=== PATIENT | male | born 1975 | race African-American/Black ===

== ENCOUNTER 2018-07-30 21:58 | Emergency (ER) | payer MEDICARE, MEDICAID ==
[~2018-07-30] VITALS: Ht 175.3 cm; Wt 113.4 kg
[~2018-07-30 21:58] MED LIST: ATIVAN0.5 MG ORAL; CYMBALTA30 MG ORAL; HALOPERIDOL0.5 MG ORAL; IBUPROFEN600 MG ORAL; IBUPROFEN800 MG ORAL; METFORMIN HCL500 M1 ORAL; NKM; QUETIAPINE FUMA25 MG ORAL; SEROQUEL200 MG ORAL
[2018-07-30] MEDS ORDERED: ABILIFY2 MG ORAL (22:04)
[2018-07-30] MEDS ORDERED: DILANTIN100 MG ORAL (22:04)
[2018-07-30] MEDS ORDERED: DEPAKOTE250 MG PO (22:04)
[2018-07-30 22:06] VITALS: BP 162/101
[2018-07-30] MEDS ORDERED: Tylenol #3 tab (300mg/30mg) ORAL ONE (22:30)
[2018-07-30] MEDS ORDERED: TYLENOL EXTRA500 MG ORAL (22:40)
--- NOTE | 2018-07-30 22:56 | Emergency Room Report ---
History of Present Illness General Chief Complaint: Lower Back Pain or Injury Source: EMS Present Illness HPI 43-year-old male presents ED for evaluation. Patient brought in by EMS. Complaining of back pain or states he's had this pain for many years now. States he normally takes Dilaudid. Pain is throbbing, 8 out of 10, nonradiating. States he has history of schizophrenia. Denies any suicidal or homicidal ideation. Denies hearing voices. Denies any bowel or bladder incontinence. Denies any leg or motor weakness. Denies any recent injury. No other aggravating relieving factors. Denies any other associated symptoms Allergies: Coded Allergies: NO KNOWN ALLERGIES (Unverified Allergy, Unknown, 11/26/15) Patient History Past Medical History: HTN, asthma, seizures, psych hx Past Surgical History: none Pertinent Family History: none Social History: Denies: smoking, alcohol use, drug use Immunizations: UTD Reviewed Nursing Documentation: PMH: Agreed; PSxH: Agreed Nursing Documentation-PMH Hx Hypertension: Yes Hx Asthma: Yes Hx Diabetes: Yes History Of Psychiatric Problem: Yes - SCHIZO,BIPOLAR Hx Seizures: Yes Review of Systems All Other Systems: negative except mentioned in HPI Physical Exam Vital Signs Date Time Temp Pulse Resp B/P (MAP) Pulse Ox O2 Delivery O2 Flow Rate FiO2 07/30/ 22:00 97.8 99 17 162/101 98 Room Air 97.9 Sp02 EP Interpretation: reviewed, normal General Appearance: no apparent distress, alert, GCS 15, non-toxic, obese Head: normocephalic, atraumatic Eyes: bilateral eye normal inspection, bilateral eye PERRL ENT: hearing grossly normal, normal pharynx, no angioedema, normal voice Neck: full range of motion, supple/symm/no masses Respiratory: chest non-tender, lungs clear, normal breath sounds, speaking full sentences Cardiovascular #1: regular rate, rhythm, no edema Cardiovascular #2: 2+ carotid (R), 2+ carotid (L), 2+ radial (R), 2+ radial (L) , 2+ dorsalis pedis (R), 2+ dorsalis pedis (L) Gastrointestinal: normal bowel sounds, non tender, soft, non-distended, no guarding, no rebound Rectal: deferred Genitourinary: normal inspection, no CVA tenderness Musculoskeletal: back normal, gait/station normal, normal range of motion, non- tender Neurologic: alert, oriented x3, responsive, motor strength/tone normal, sensory intact, speech normal Psychiatric: judgement/insight normal, memory normal, mood/affect normal, no suicidal/homicidal ideation, anxious Reflexes: 3+ bicep (R), 3+ bicep (L), 3+ tricep (R), 3+ tricep (L), 3+ knee (R) , 3+ knee (L) Skin: normal color, no rash, warm/dry, well hydrated Lymphatic: no adenopathy Medical Decision Making Diagnostic Impression: Primary Impression: Chronic back pain Qualified Codes: M54.5 - Low back pain; G89.29 - Other chronic pain Additional Impression: Schizophrenia Qualified Codes: F20.9 - Schizophrenia, unspecified ER Course Hospital Course 43-year-old male presents ED complaining of lower back pain. No evidence of trauma Differential diagnoses include: pyelonephritis, kidney stone, muscle strain, Lspine fracture Clinical course Patient placed on stretcher. After initial history, physical exam reveals an obese male in no acute distress. There is no focal neurological deficits. 5 out of 5 motor strength in both legs. Patient is requesting [place]. I agreed to provide him with Tylenol 3. Patient is asking to be discharged. Denies any SI or HI at this time. Patient given wheelchair and resources for fdc Diagnosis - chronic back pain, schizophrenia Stable and discharged to home with prescription for Tylenol. Followup with PMD. Return to ED if symptoms recur or worsen Last Vital Signs Date Time Temp Pulse Resp B/P (MAP) Pulse Ox O2 Delivery O2 Flow Rate FiO2 07/30/18 22:31 97.8 07/30/18 22:06 17 162/101 98 Room Air 07/30/18 22:00 99 Status: improved Disposition: HOME, SELF-CARE Condition: Stable Scripts Acetaminophen* (TYLENOL EXTRA STRENGTH*) 500 Mg Tablet 500 MG ORAL Q8H PRN for Prn Headache/Temp > 101, #30 TAB 0 Refills Prov: Fer Tang MD 07/30/18 Referrals: NOT CHOSEN [facility]/,REFERRING (PCP) Patient Instructions: Low Back Sprain With Rehab[facility] Fer Tang MD Jul 30, 2018 22:56
[2018-07-30 22:58] VITALS: BP 150/98
== END 2018-07-30 22:58 | disposition home or self-care (01) ==
LOC: EDUNIT# 21:58 → EDBD 21:58 → EMR 22:25
DX: G89.29 Other chronic pain (principal); M54.5 Low back pain; F20.9 Schizophrenia, unspecified; I10 Essential (primary) hypertension; E11.9 Type 2 diabetes mellitus without complications; J45.909 Unspecified asthma, uncomplicated; R56.9 Unspecified convulsions; F31.9 Bipolar disorder, unspecified; Z79.891 Long term (current) use of opiate analgesic
CPT/HCPCS: 99283

== ENCOUNTER 2018-08-14 04:48 | Emergency (ER) | payer MEDICARE, MEDICAID ==
[~2018-08-14] VITALS: Ht 177.8 cm; Wt 156.5 kg
[~2018-08-14 04:48] MED LIST changes: +ABILIFY2 MG ORAL; +DEPAKOTE250 MG PO; +DILANTIN100 MG ORAL; +TYLENOL EXTRA500 MG ORAL
[2018-08-14 05:15] VITALS: BP 150/84
[2018-08-14] MEDS ORDERED: QUETIAPINE FUM200 MG ORAL (05:56)
--- NOTE | 2018-08-14 05:56 | Emergency Room Report ---
History of Present Illness General Chief Complaint: Behavioral Complaint Source: Patient, Medical Record Present Illness HPI This a 43-year-old male who is homeless. He has a history of schizophrenia been off of his Seroquel. Also history of methamphetamine and heroin abuse. He called 911 from a gas station claiming that he is suicidal. No particular plan. No fever chills but no nausea no vomiting. Here he said is no longer suicidal. Said that his want a place to sleep. Also want some food. Denies any other complaint. Recent psychiatric admission 2 months ago. He said he was trying to find drug to use yesterday but last use was 2 weeks ago. Also out of his medicine for the last 2 weeks. Allergies: Coded Allergies: NO KNOWN ALLERGIES (Unverified Allergy, Unknown, 11/26/15) Patient History Past Medical History: see triage record, old chart reviewed, schizophrenia Past Surgical History: none Family History: none Social History: tobacco use, drug use, other Immunizations: other Reviewed Nursing Documentation: PMH: Agreed; PSxH: Agreed Nursing Documentation-PMH Past Medical History: No History, Except For Hx Hypertension: Yes Hx Asthma: Yes Hx Diabetes: Yes History Of Psychiatric Problem: Yes Hx Seizures: Yes Review of Systems ENT: Denies: sore throat Cardiovascular: Denies: chest pain, palpitations Gastrointestinal/Abdominal: Denies: nausea, vomiting, diarrhea Musculoskeletal: Denies: back problems Skin: Denies: rash Psychiatric: Reports: prior history Neurological: Denies: PISANO, seizures All Other Systems: negative except mentioned in HPI Physical Exam Vital Signs Date Time Temp Pulse Resp B/P (MAP) Pulse Ox O2 Delivery O2 Flow Rate FiO2 08/14/18 04:43 98.4 90 20 180/111 98 Room Air 98.4 vitals with high blood pressure Sp02 EP Interpretation: reviewed, normal General Appearance: alert/responsive, no apparent distress, non-toxic Head: normocephalic, atraumatic Eyes: PERRL, EOMI ENT: oropharynx normal Neck: supple/symm/no masses Respiratory: effort normal, no rhonchi, no wheezing Cardiovascular: no murmur, gallop, rub Gastrointestinal: non-tender, no mass, non-distended, no rebound/guarding, normal bowel sounds Musculoskeletal: gait & station normal Neurologic: oriented x3, sensory intact, motor strength/tone normal Skin: no rash, normal palpation Medical Decision Making Diagnostic Impression: Primary Impression: Behavioral disorder Additional Impressions: Hypertension Qualified Codes: I10 - Essential (primary) hypertension Drug abuse ER Course Patient here with initially but suicidal thoughts but none now. I suspect that he was malingering to get a place to stay. No evidence of suicidal thoughts or homicidal thought here. No hallucination or delusion. No criteria for 5150. His elevated high blood pressure may be secondary to drug abuse. No evidence of endorgan damage. This patient is a chronic risk of self injury due to poor impulse control, limited coping skills, and judgment intermittently impaired by intoxication. I believe that the available clinical evidence to suggest that these characteristics derived primarily from personality disorder and are likely very stable over time. Hospitalization would likely attenuate risk of self-harm only during mcfp period, without lasting risk reduction. Serious self-harm , while possible, would likely be inadvertent, and because of impulsivity, and foreseeable. For these reasons, I do not believe hospitalization would provide meaningful reduction in risk of self-harm. Last Vital Signs Date Time Temp Pulse Resp B/P (MAP) Pulse Ox O2 Delivery O2 Flow Rate FiO2 08/14/18 05:15 98.4 83 15 150/84 100 Room Air 98.4 Status: improved Disposition: HOME, SELF-CARE Condition: Stable Scripts Quetiapine Fumarate* (SEROQUEL*) 200 Mg Tablet 200 MG ORAL DAILY, #30 TAB Prov: Bryan Merchant MD 08/14/18 Referrals: NOT CHOSEN [facility]/,REFERRING (PCP) Patient Instructions: Self-Destructive Behavior Additional Instructions: Using drugs. Follow-up with your mental health doctor in 7 days. Return if worse. Bryan Merchant MD Aug 14, 2018 05:56
[2018-08-14 06:00] VITALS: BP 150/84
== END 2018-08-14 06:00 | disposition home or self-care (01) ==
LOC: EDBD 04:48 → EMR 05:18
DX: F91.8 Other conduct disorders (principal); F19.10 Other psychoactive substance abuse, uncomplicated; I10 Essential (primary) hypertension; E11.9 Type 2 diabetes mellitus without complications; Z72.0 Tobacco use
CPT/HCPCS: 80307; 99283

== ENCOUNTER 2018-08-20 20:54 | Emergency (ER) | payer MEDICARE, MEDICAID ==
[~2018-08-20] VITALS: Ht 182.9 cm; Wt 136.1 kg
[~2018-08-20 20:54] MED LIST changes: +QUETIAPINE FUM200 MG ORAL
[2018-08-20 21:17] VITALS: BP 177/104
[2018-08-20 22:05] VITALS: BP 172/99
--- NOTE | 2018-08-22 06:58 | Emergency Room Report ---
History of Present Illness General Chief Complaint: Behavioral Complaint Source: Patient, EMS Present Illness HPI 43-year-old male presents ED for evaluation. Brought in by EMS from local store. Complaining of back pain. History of chronic back pain. Recent fall or injury. Pain is dull, 8 out of 10, nonradiating. History of schizophrenia. Denies suicidal homicidal ideation. Denies hearing voices. Denies drug use. Denies bowel or bladder incontinence. Denies any leg or motor weakness. No other aggravating or relieving factors. Denies any other associated symptoms Allergies: Coded Allergies: NO KNOWN ALLERGIES (Unverified Allergy, Unknown, 11/26/15) Patient History Past Medical History: DM, HTN, asthma, seizures, psych hx Past Surgical History: none Pertinent Family History: none Social History: Denies: smoking, alcohol use, drug use Immunizations: UTD Reviewed Nursing Documentation: PMH: Agreed; PSxH: Agreed Nursing Documentation-PMH Past Medical History: No History, Except For Hx Cardiac Problems: Yes Hx Hypertension: Yes Hx Asthma: Yes Hx Diabetes: Yes Hx Seizures: Yes Review of Systems All Other Systems: negative except mentioned in HPI Physical Exam Vital Signs Date Time Temp Pulse Resp B/P (MAP) Pulse Ox O2 Delivery O2 Flow Rate FiO2 08/20/18 20:53 98.4 100 16 177/104 96 Room Air 98.4 Sp02 EP Interpretation: reviewed, normal General Appearance: no apparent distress, alert, GCS 15, non-toxic, obese Head: normocephalic, atraumatic Eyes: bilateral eye normal inspection, bilateral eye PERRL ENT: hearing grossly normal, normal pharynx, no angioedema, normal voice Neck: full range of motion, supple/symm/no masses Respiratory: chest non-tender, lungs clear, normal breath sounds, speaking full sentences Cardiovascular #1: regular rate, rhythm, no edema Cardiovascular #2: 2+ carotid (R), 2+ carotid (L), 2+ radial (R), 2+ radial (L) , 2+ dorsalis pedis (R), 2+ dorsalis pedis (L) Gastrointestinal: normal bowel sounds, non tender, soft, non-distended, no guarding, no rebound Rectal: deferred Genitourinary: normal inspection, no CVA tenderness Musculoskeletal: back normal, gait/station normal, normal range of motion, tender - paraspinal lumbar tenderness Neurologic: alert, oriented x3, responsive, motor strength/tone normal, sensory intact, speech normal Psychiatric: judgement/insight normal, memory normal, no suicidal/homicidal ideation, no delusions, anxious Reflexes: 3+ bicep (R), 3+ bicep (L), 3+ tricep (R), 3+ tricep (L), 3+ knee (R) , 3+ knee (L) Skin: normal color, no rash, warm/dry, well hydrated Lymphatic: no adenopathy Medical Decision Making Diagnostic Impression: Primary Impression: Chronic back pain Qualified Codes: M54.5 - Low back pain; G89.29 - Other chronic pain Additional Impression: Schizophrenia Qualified Codes: F20.9 - Schizophrenia, unspecified ER Course Hospital Course 43-year-old male presents ED complaining of lower back pain. No evidence of trauma Differential diagnoses include: pyelonephritis, kidney stone, muscle strain, Lspine fracture Clinical course Patient placed on stretcher. After initial history and physical I ordered tylenol for pain. Patient has been here multiple times for similar complaint. No danger to self or others at this time. Requesting to be discharged after Tylenol has been given. Diagnosis -chronic back pain , schizophrenia Stable and discharged to home. Followup with PMD. Return to ED if symptoms recur or worsen Last Vital Signs Date Time Temp Pulse Resp B/P (MAP) Pulse Ox O2 Delivery O2 Flow Rate FiO2 08/20/18 22:05 98.6 16 172/99 96 Room Air 08/20/18 20:53 100 Status: improved Disposition: HOME, SELF-CARE Condition: Stable Referrals: NOT CHOSEN [facility]/,REFERRING (PCP) Patient Instructions: Chronic Pain Fer Tang MD Aug 22, 2018 06:58
== END 2018-08-20 22:05 | disposition home or self-care (01) ==
LOC: EDBD 20:54 → EMR 21:27
DX: G89.29 Other chronic pain (principal); M54.9 Dorsalgia, unspecified; F20.9 Schizophrenia, unspecified; I10 Essential (primary) hypertension; E11.9 Type 2 diabetes mellitus without complications; J45.909 Unspecified asthma, uncomplicated; Z91.81 History of falling
CPT/HCPCS: 99283

== ENCOUNTER 2019-08-19 10:08 | Inpatient (IN) | payer MEDICARE, MEDICAID ==
[~2019-08-19] VITALS: Ht 177.8 cm; Wt 136.1 kg
[2019-08-19] MEDS ORDERED: NKM (10:12)
--- NOTE | 2019-08-19 10:15 | NUR ---
ED Nurse Note: Pt is AAoX4, vss, no acute distress. pt has suicidal ideations. pt brought by [facility] [address] due to weakness. non-compliant meds for DM and HTN. BS 212
--- NOTE | 2019-08-19 10:17 | NUR ---
ED Nurse Note: Pt refused VRE/CRE swabs. Pt states that he is allergic to the swab. MRSA collected.
--- NOTE | 2019-08-19 10:17 | NUR ---
ED Nurse Note: Chest x-ray complete.
[2019-08-19 10:39] VITALS: BP 158/99
[2019-08-19] MEDS ORDERED: LORazepam 1mg tab ORAL ONE (11:00)
--- NOTE | 2019-08-19 11:00 | Emergency Room Report ---
History of Present Illness General Chief Complaint: Generalized Weakness Source: Patient, Medical Record, EMS Present Illness HPI 44-year-old male with history of hypertension, diabetes, methamphetamine abuse reports that he is methamphetamines last night and since then he feels generalized weakness, and wants medications to help him relax, he reports sometimes he has suicidal thoughts, but has no plan, and reports he just wants something to help him calm down. He specifically denies any active suicidality currently, just reports he needs meds to help him relax after having used methamphetamines. Reports generalized weakness but no focal weakness, denies fevers, falls, pain complaints, any other problems. Allergies: Coded Allergies: NO KNOWN ALLERGIES (Unverified Allergy, Unknown, 11/26/15) Patient History Past Medical History: see triage record Reviewed Nursing Documentation: PMH: Agreed; PSxH: Agreed Nursing Documentation-PMH Past Medical History: No History, Except For Hx Cardiac Problems: Yes Hx Hypertension: Yes Hx Asthma: Yes Hx Diabetes: Yes Hx Seizures: Yes Review of Systems All Other Systems: negative except mentioned in HPI Physical Exam Vital Signs Date Time Temp Pulse Resp B/P (MAP) Pulse Ox O2 Delivery O2 Flow Rate FiO2 08/19/19 10:09 99.0 90 14 180/110 (133) 96 Room Air 08/19/19 10:39 99 Sp02 EP Interpretation: reviewed, normal General Appearance: no apparent distress, alert, non-toxic Head: normocephalic Eyes: bilateral eye normal inspection, bilateral eye PERRL, bilateral eye EOMI ENT: normal ENT inspection, hearing grossly normal, normal pharynx, no angioedema, normal voice, moist mucus membranes Neck: normal inspection, full range of motion, supple, supple/symm/no masses Respiratory: chest non-tender, lungs clear, normal breath sounds, chest symmetrical, palpation of chest normal Cardiovascular #1: normal peripheral pulses, regular rate, rhythm Cardiovascular #2: 2+ radial (R), 2+ radial (L) Gastrointestinal: normal inspection, non tender, soft, no mass, no guarding, no rebound Rectal: deferred Genitourinary: normal inspection, no CVA tenderness Musculoskeletal: back normal, gait/station normal, normal range of motion, non- tender, no calf tenderness Neurologic: alert, responsive, annual campaign manager III-XII nml as tested, motor strength/tone normal, sensory intact, speech normal Psychiatric: judgement/insight normal, memory normal, no suicidal/homicidal ideation, anxious Lymphatic: no adenopathy Procedures Critical Care Time Critical Care Time 45 minutes of critical care time excluding all procedures, due to risk of cardiovascular emergency Medical Decision Making Diagnostic Impression: Primary Impression: Episode of generalized weakness Additional Impressions: Methamphetamine abuse Hypertension ER Course Patient With substance abuse, but hypertension has been refractory to oral meds here, also given Haldol due to his chronic schizophrenia, however patient's blood pressure kept climbing, he has a normal neurologic examination, and therefore will need admission for hypertensive urgency, likely drug-induced, as well as medication noncompliance induced, will admit to telemetry. EKG Diagnostic Results EKG Time: 10:23 EP Interpretation: no stemi Rate: normal Rhythm: NSR ST Segments: no acute changes ASA given to the pt in ED: No Rhythm Strip Diag. Results Rhythm Strip Time: 11:00 EP Interpretation: yes Rate: 92 Rhythm: NSR, no PVC's, no ectopy Last Vital Signs Date Time Temp Pulse Resp B/P (MAP) Pulse Ox O2 Delivery O2 Flow Rate FiO2 08/19/19 10:39 99.0 74 14 158/99 99 Room Air 08/19/19 10:39 99 Disposition: ADMITTED INPATIENT Condition: Stable Referrals: NOT CHOSEN [facility]/,REFERRING (PCP) DONNY WINSTON M.D Aug 19, 2019 11:00
--- NOTE | 2019-08-19 11:03 | NUR ---
ED Nurse Note: Blood sent to lab. Urine pending. Pt states he is allergic to Ativan.
--- NOTE | 2019-08-19 11:05 | NUR ---
ED Nurse Note: Pt refused Atavan. Pt stated that he wants to go to [facility] and speak with Ashley Davis for his living arrangment after his visit.
[2019-08-19 11:16] LABS: BASOPHILS % (AUTO) 0.9 % (0.0-2.0); HEMATOCRIT 40.5 % (42.0-52.0); HEMOGLOBIN 13.8 G/DL (14.2-18.0); LYMPHOCYTES % (AUTO) 31.4 % (20.0-45.0); MEAN CORPUSCULAR VOLUME 81 FL (80-99); MONOCYTES % (AUTO) 6.3 % (1.0-10.0); NEUTROPHILS % (AUTO) 59.3 % (45.0-75.0); PLATELET COUNT 251 K/UL (150-450); RED CELL DISTRIBUTION WIDTH 12.3 % (11.6-14.8); WHITE BLOOD COUNT 8.7 K/UL (4.8-10.8)
[2019-08-19 11:19] LABS: ANION GAP 11 mmol/L (5-15); BLOOD UREA NITROGEN 16 mg/dL (7-18); CALCIUM 8.9 MG/DL (8.5-10.1); CARBON DIOXIDE 27 MMOL/L (21-32); CHLORIDE 103 MMOL/L (98-107); CREATININE 0.9 MG/DL (0.55-1.30); POTASSIUM 3.4 MMOL/L (3.5-5.1); SODIUM 141 MMOL/L (136-145)
--- NOTE | 2019-08-19 11:23 | Diagnostic Imaging Report ---
Indication: Shortness of breath Technique: One view of the chest Comparison: none Findings: Lungs and pleural spaces are clear. Heart size is normal. Impression: No acute process
[2019-08-19 11:25] LABS: ALANINE AMINOTRANSFERASE 46 U/L (12-78); ALBUMIN 3.4 G/DL (3.4-5.0); ALKALINE PHOSPHATASE 96 U/L (46-116); ASPARTATE AMINO TRANSFERASE 33 U/L (15-37); BILIRUBIN,TOTAL 0.6 MG/DL (0.2-1.0)
[2019-08-19] MEDS ORDERED: Haloperidol 5mg/ml Inj IM ONE (11:30)
--- NOTE | 2019-08-19 13:26 | Diagnostic Imaging Report ---
Indication: Chest pain Technique: One view of the chest Comparison: 08/19/2019 Findings: Body habitus limits evaluation. Lungs and pleural spaces are clear. The heart is borderline enlarged. There is evidence of prior lumbar spine fusion surgery again demonstrated. Findings are unchanged Impression: Unchanged, over 3 hours, findings as above.
[2019-08-19 13:30] VITALS: BP 166/93
--- NOTE | 2019-08-19 13:30 | NUR ---
ED Nurse Note: Dr. Brito notified of blood pressure 166/93 with HR 89. Patient sleeping in bed. ERMD ordered to hold Labetalol at this time.
--- NOTE | 2019-08-19 13:35 | NUR ---
ED Nurse Note: Pt denies SI/HI at this time.verified with Dr Brito. Cooperative with care at this
[2019-08-19 13:48] VITALS: BP 149/96
[2019-08-19 14:16] LABS: APPEARANCE,URINE CLEAR; BILIRUBIN, URINE NEGATIVE (NEGATIVE); GLUCOSE, URINE (UA) 1+ (NEGATIVE); KETONES,URINE NEGATIVE (NEGATIVE); LEUKOCYTE ESTERASE ,URINE NEGATIVE (NEGATIVE); NITRITE,URINE NEGATIVE (NEGATIVE); PH,URINE 6.5 (4.5-8.0); PROTEIN,URINE NEGATIVE (NEGATIVE); UROBILINOGEN,URINE 4 MG/DL (0.0-1.0)
[2019-08-19 14:17] LABS: COLOR,URINE YELLOW
[2019-08-19] MEDS ORDERED: UNOBMED (14:24)
--- NOTE | 2019-08-19 14:24 | NUR ---
ED Nurse Note: Report given to Freda JACOBO pt will be going to [id number] via [facility]/DONNELL and tech on cm in stable condition. Per Dr nestor adamest want to give K replacement at this time.
--- NOTE | 2019-08-19 14:25 | NUR ---
NURSE NOTES: The patient's bed in the lowest position, call light in reach, and fall, aspiration and seizure precaution reinforced. IV site intact and patent. Will continue plan of care.
--- NOTE | 2019-08-19 14:25 | NUR ---
NURSE NOTES: Received report from DONNELL Jang @ER. The patient is homeless and minicog testing was completed at ER. The patient received blood pressure medication @ER and was told that systolic blood pressure was 150s with medications support. The patient's belongings checked and signed by the patient. Admitting EKG strip obtained. Per ER nurse, unable to do medication reconciliation since the patient cannot remember the name of the medication. Per DONNELL Jang @ ER, the patient refused the swab. Medical, surgical, allergy, and social history were asked by the primary nurse to the patient, but the patient did not answer the question. Upon asking, the patient denies of suicidal ideation, thoughts, or plan. The patient has IV on R hand 20G SL, which is intact and patent. Per patient, the patient does not have next of kin or family member to contact for the further information. The patient does not have POST, Advance directive, or POA. Skin is intact. The admitting vital signs were as follows: 150/97, pulse 87, temperature 97.7, and SpO2 99% in room air. Will call Dr. Tovar for admission order. Will continue plan of care.
--- NOTE | 2019-08-19 14:45 | NUR ---
NURSE NOTES: Potassium of 3.4. no KCL given at ER. Dr. Tovar and Dr. García was notified but no order yet. Will continue plan of care.
[2019-08-19 15:04] VITALS: BP 150/97
--- NOTE | 2019-08-19 15:40 | NUR ---
NURSE NOTES: Dr. Tovar and Dr. García ordered admission orders including DVT, consults, code status, diet order, lab for tomorrow am, and medication as the patient does not remember the name of the medication. Will continue plan of care as ordered.
--- NOTE | 2019-08-19 16:00 | NUR ---
NURSE NOTES: The patient has stable vital signs as follows: blood pressure of 115/75, pulse of 83, temperature of97.7, and SpO2 of 95% in room air.
--- NOTE | 2019-08-19 16:00 | NUR ---
NURSE NOTES: The patient is strongly resistant in medical care. The patient screamed to the nurse saying that the patient feels better and would like to sign out with AMA. The charge nurse and the nursing supervisor quality control was notified. Will contact Dr. García and Dr. Tovar.
[2019-08-19 16:30] VITALS: BP 115/75
[2019-08-19] MEDS ORDERED: Enoxaparin 40mg Inj SUBQ SCH (16:30)
[2019-08-19] MEDS ORDERED: NovoLOG Insulin Flexpen SUBQ SCH (17:00)
--- NOTE | 2019-08-19 18:10 | NUR ---
NURSE NOTES: The patient signed the form for leaving hospital against medical advice, homeless patient discharge planning checklist, and patient's belongings inventory forms. The patient screamed to the primary nurse and the charge nurse saying that leave him alone and would like to leave right now. Notified the patient's decision of AMA to Dr. Tovar and Dr. aGrcía. The patient was informed about the risks and consequences involved in leaving the hospital at this time, the benefits of continued treatment and hospitalization, and the alternatives times three, but the patient would like to sign AMA and leave hospital right now. The patient's belongings checked with the patient and signed before leaving the hospital. In terms of homeless patient discharge planning checklist, the patient refused to state where he will go after discharge and refused the placement option. The patient offered the transportation but refused by the patient. The patient's meal was provided in an appropriate manner. The patient was provided with weather appropriate clothing. The medication provided during hospitalization but was not able to be provided at the time of discharge since the patient signed for AMA and no discharge medication was available. The patient refused the swabs upon discharge. The vaccinations appropriate for his or her presenting medical condition was refused by the patient. The patient refused the follow up care. The patient refused follow up behavioral healthcare. The patient refused medical care. The patient refused the social service regarding insurance coverage. The patient is not on homeless patient log because the patient signed for AMA. In short, the patient refused all medical care, assessment, resource, and service and signed the AMA. The patient is on stable condition in terms of vital signs and physical symptoms. The patient left in a safe manner with the primary nurse and security's assistance. The primary nurse removed IV, telebox, and nameband. Notified the case to Dr. Tovar, Dr. García, the charge nurse, and the nursing stock control supervisor.
--- NOTE | 2019-08-19 18:30 | NUR ---
NURSE NOTES: DR STARK RETURNED CALL AND WAS NOTIFIED THAT PT LEFT AMA.
[2019-08-19] MEDS ORDERED: ABILIFY2 MG ORAL (21:14)
[2019-08-19] MEDS ORDERED: NORVASC2.5 MG ORAL (21:14)
[2019-08-19] MEDS ORDERED: ZYPREXA10 M1 INJ (21:14)
[2019-08-19] MEDS ORDERED: DEPAKOTE125 MG PO (21:14)
[2019-08-19] MEDS ORDERED: QUETIAPINE FUMA25 MG ORAL (21:14)
[2019-08-19] MEDS ORDERED: METFORMIN HCL5000 GM MC (21:14)
[2019-08-19] MEDS ORDERED: DILANTIN100 MG ORAL (21:14)
[2019-08-19] MEDS ORDERED: ABILIFY10 MG ORAL (23:00)
[2019-08-19] MEDS ORDERED: SEROQUEL200 MG ORAL (23:00)
--- NOTE | 2019-08-20 01:00 | Consultation ---
DATE OF CONSULTATION: 08/19/2019 CONSULTING PHYSICIAN: Tyler García M.D. REFERRING PHYSICIAN: Mic Tovar M.D. REASON FOR CONSULTATION: Hypertensive urgency. HISTORY OF PRESENT ILLNESS: The patient is a 44-year-old gentleman who presented to the emergency room for evaluation care of complaints of generalized weakness, feeling ill, no suicidal thoughts, and quite anxious and concerned. The patient has a history of methamphetamine abuse and reports using methamphetamines the evening prior and was very concerned because he was not feeling well. As such, presented to emergency room for further evaluation and care, noted to have elevated blood pressure. The patient was given Norvasc and Haldol in the emergency room. He is currently very somnolent, difficult to arouse, and is sleeping due to the Haldol. ALLERGIES: No known drug allergies. PAST MEDICAL HISTORY: 1. Hypertension. 2. Diabetes mellitus. 3. Methamphetamine abuse. 4. Schizophrenia SOCIAL HISTORY: Positive for illicit drug use, alcohol. Clear of tobacco use. PAST SURGICAL HISTORY: Unknown. FAMILY HISTORY: Positive for hypertension REVIEW OF SYSTEMS: Cannot be obtained as the patient is sedated, post Haldol. LABORATORY DATA: Labs dated 08/19/2019, white cell count 8.7, hemoglobin 13.8, and platelet count 251,000. Sodium 141, potassium 3.4, creatinine 0.9. PHYSICAL EXAMINATION: VITAL SIGNS: Blood pressure 146/96, respiratory rate 18, pulse 87, temperature 97.7, and 97% oxygen saturation on room air. GENERAL: The patient is very somnolent, difficult to arouse post Haldol. HEENT: Extraocular muscles intact. No lymphadenopathy noted. CARDIOVASCULAR: S1, S2. No rubs or gallops. PULMONARY: Clear to auscultation bilaterally. No rales, rhonchi, or wheezes. ABDOMEN: Soft, nontender. EXTREMITIES: No edema noted. ASSESSMENT AND PLAN: 1. Hypertensive urgency. At this time secondary to methamphetamine abuse. We will try not to decrease blood pressure more than 25% over the first 24 hours. Continue labetalol 100 mg q.12 h. His blood pressure is already down to approximately systolic blood pressure 150, also add p.r.n. IV hydralazine. Urine drug screen is still pending. 2. Schizophrenia. Status post Haldol. Defer management to primary care physician's group and Psychiatry. 3. Diabetes. We will initiate insulin sliding scale and Accu-Cheks. 4. DVT prophylaxis with Lovenox. Let me take this opportunity to thank Dr. Tovar. Tylercarol García MD DR: BRODY/BAN JOB#: [id number] CC:
--- NOTE | 2019-08-20 09:54 | History & Physical ---
History and Physical History & Physicial HISTORY OF PRESENT ILLNESS: The patient is a 44-year-old man who presented to the emergency room for evaluation care of complaints of generalized weakness, feeling ill, no suicidal thoughts, and quite anxious and concerned. The patient has a history of methamphetamine abuse and reports using methamphetamines the evening prior and was very concerned because he was not feeling well. He presented to emergency room for further evaluation and care, noted to have elevated blood pressure. The patient was given Norvasc and Haldol in the emergency room. He is currently very somnolent, difficult to arouse, and is sleeping due to the Haldol. ALLERGIES: No known drug allergies. PAST MEDICAL HISTORY: 1. Hypertension. 2. Diabetes mellitus. 3. Methamphetamine abuse. 4. Schizophrenia SOCIAL HISTORY: Positive for illicit drug use, alcohol. Clear of tobacco use. PAST SURGICAL HISTORY: Unknown. FAMILY HISTORY: Positive for hypertension REVIEW OF SYSTEMS: Cannot be obtained as the patient is sedated, post Haldol. LABORATORY DATA: Labs dated 08/19/2019, white cell count 8.7, hemoglobin 13.8, and platelet count 251,000. Sodium 141, potassium 3.4, creatinine 0.9. PHYSICAL EXAMINATION: VITAL SIGNS: Blood pressure 146/96, respiratory rate 18, pulse 87, temperature 97.7, and 97% oxygen saturation on room air. GENERAL: The patient is very somnolent, difficult to arouse post Haldol. HEENT: Extraocular muscles intact. No lymphadenopathy noted. CARDIOVASCULAR: S1, S2. No rubs or gallops. PULMONARY: Clear to auscultation bilaterally. No rales, rhonchi, or wheezes. ABDOMEN: Soft, nontender. EXTREMITIES: No edema noted. ASSESSMENT AND PLAN: 1. Hypertensive urgency. At this time secondary to methamphetamine abuse. Continue labetalol 100 mg q.12 h. His blood pressure is already down to approximately systolic blood pressure 150, also add p.r.n. IV hydralazine. Urine drug screen is still pending. 2. Schizophrenia. Status post Haldol. 3. Diabetes. We will initiate insulin sliding scale and Accu-Cheks. 4. DVT prophylaxis with Lovenox. Mic Tovar MD Aug 20, 2019 09:54
--- NOTE | 2019-08-20 14:16 | Cardiology Report ---
APPROVED REPORT EKG Measurement Heart [id number] NM [id number] Normal sinus rhythm Normal ECG
--- NOTE | 2019-08-21 06:00 | Consultation ---
DATE OF CONSULTATION: 08/19/2019 HISTORY OF PRESENT ILLNESS: This is a 44-year-old male with a history of hypertension, diabetes mellitus, schizophrenia, and methamphetamine abuse, who has been admitted to the hospital due to generalized weakness, depressed mood, feeling symptoms, anxious. The patient is denying any suicidal or homicidal ideation. The patient has been using meth. The patient has received Haldol in the emergency room. He was lethargic earlier; however, able to answer his questions currently, easily agitated at times. PSYCHIATRIC HISTORY: Schizophrenia. PAST MEDICAL HISTORY: As above. ALLERGIES: No known drug allergies. SUBSTANCE ABUSE HISTORY: Significant for meth use. MENTAL STATUS EXAMINATION: Alert and oriented times self, place, and situation. Mood is anxious. Affect is constricted. Congruent with mood. Thought process is concrete. Thought content, no suicidal or homicidal ideations. He is paranoid. Insight and judgment are impaired. ASSESSMENT: [place] I Schizophrenia. Meth abuse. [place] II Deferred. [place] III As above. [place] IV Low. [place] V 20. PLAN: 1. The patient will be started on low dose of antipsychotics. 2. The patient is not an imminent danger to self or others. Yadiel Bentley M.D. DR: MADYSON JOB#: [id number] CC: AKANKSHA
--- NOTE | 2019-08-21 09:28 | Discharge Summary ---
Discharge Summary Discharge Summary _ DATE OF ADMISSION: 08/19/2019 DATE OF DISCHARGE: 08/19/2019 Patient left AGAINST MEDICAL ADVICE REASON FOR ADMISSION: 44 years old male with past medical history of hypertension, diabetes, asthma, seizure disorder, methamphetamine abuse, reported using methamphetamine last night, and afterwards had generalized weakness. He reported some suicidal thoughts , but no plan. He wanted some medication to calm him down. He denied any suicidal ideation upon evaluation Vital signs demonstrated significantly elevated blood pressure 180/110. Neurological examination was stable. Laboratory workup revealed no leukocytosis , hemoglobin 13.8 , hematocrit 40.5. Potassium 3.4. Stable electrolytes and renal parameters. Glucose 234. Stable LFT and lipase. Troponin negative. EKG revealed normal sinus rhythm no acute ischemic changes. Urinalysis revealed +1 glucose , no evidence of urinary tract infection. Chest x-ray demonstrated no acute process. Patient was admitted for hypertensive urgency , most likely drug-induced. 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 Nephrology and psychiatric consults were requested. Blood pressure was managed with beta-corazon/labetalol. Hydralazine was on board as needed. Blood pressure stabilized, Blood sugar was managed with sliding scale of insulin. DVT prophylaxis provided. Potassium was replaced. Psychiatrist seen and evaluated patient and diagnosed patient with schizophrenia along with methamphetamine abuse. Patient started on low-dose of antipsychotic. Per psychiatrist , patient was not at imminent danger to self or other. Patient later that day decided to leave AGAINST MEDICAL ADVICE. The risks and consequences of signing AGAINST MEDICAL ADVICE were discussed with patient in detail. Patient verbalized understanding, nevertheless signed AMA form and left. FINAL DIAGNOSES: Hypertensive urgency Methamphetamine abuse Diabetes mellitus Schizophrenia I have been assigned to dictate discharge summary for this account. I was not involved in the patient's management. Yudelka Martinez NP Aug 21, 2019 09:28
--- NOTE | 2019-08-23 11:54 | NUR ---
*-* INSURANCE *-* ALL AVAILABLE CLINICALS HAVE BEEN FAXED TO: [facility] Tracking#[id number] No CM assigned. #[phone]
== END 2019-08-19 18:15 | disposition left against medical advice (07) | DRG 305 ==
LOC: EDBD 10:08 → EDUNIT# 10:08 → EMR 10:35 → EDBEDREQ 12:31 → 2E 12:45 → EDBEDREQ 13:57 → 2E 14:29
DX: I16.0 Hypertensive urgency (principal); F15.10 Other stimulant abuse, uncomplicated; F20.9 Schizophrenia, unspecified; E11.9 Type 2 diabetes mellitus without complications; Z59.0 Homelessness
CPT/HCPCS: 36415; 71045; 80053; 81003; 82962; 83690; 84484; 85025; 87081; 93005; 96361; 96372; 96374; 99291; J1815

== ENCOUNTER 2019-08-19 21:15 | Emergency (ER) | payer MEDICARE, MEDICAID ==
[~2019-08-19] VITALS: Ht 172.7 cm; Wt 113.4 kg
[~2019-08-19 21:15] MED LIST changes: +DEPAKOTE125 MG PO; +METFORMIN HCL5000 GM MC; +NORVASC2.5 MG ORAL; +UNOBMED; +ZYPREXA10 M1 INJ
--- NOTE | 2019-08-19 21:42 | NUR ---
ED Nurse Note: BROUGHTIN BY [facility] for behavioural, WAS RECENTLY DISCHARGED DUE TO BACK PAIN. pt initially brought in for si. pt now states he wants a place to sleep and food. pt denies si or hi or pain. provided pt with nourishment and warm blanket. medicated with zyprexa; tolerated well. pt states he wants to sleep for a little then he will leave. refuses to disclose location after discharge.
[2019-08-19 21:59] VITALS: BP 132/92
--- NOTE | 2019-08-19 22:30 | Emergency Room Report ---
History of Present Illness General Chief Complaint: Behavioral Complaint Source: Patient Present Illness HPI 44-year-old male with a history of schizophrenia. He presents with chief complaint of hearing voices. He supposed to be on Abilify and Seroquel but not taking it. He said the voice tell him to use methamphetamine. He has a history of methamphetamine and heroin abuse. Initially said he was suicidal but no suicidal thoughts to me. Denies any homicidal thought. Denies any other complaint. He said he wants a place to sleep for tonight. Allergies: Coded Allergies: NO KNOWN ALLERGIES (Unverified Allergy, Unknown, 11/26/15) Patient History Past Medical History: see triage record, old chart reviewed Past Surgical History: none Family History: none Social History: tobacco use, drug use Immunizations: other Reviewed Nursing Documentation: PMH: Agreed; PSxH: Agreed Nursing Documentation-PMH Hx Cardiac Problems: Yes Hx Hypertension: Yes Hx Asthma: Yes Hx Diabetes: Yes Hx Cancer: No Hx Gastrointestinal Problems: No History Of Psychiatric Problem: Yes - BIPOLAR Hx Neurological Problems: Yes Hx Seizures: Yes Hx Epilepsy: Yes Review of Systems ENT: Denies: sore throat Cardiovascular: Denies: chest pain, palpitations Gastrointestinal/Abdominal: Denies: nausea, vomiting, diarrhea Musculoskeletal: Denies: back problems Skin: Denies: rash Neurological: Denies: PISANO, seizures All Other Systems: negative except mentioned in HPI Physical Exam Vital Signs Date Time Temp Pulse Resp B/P (MAP) Pulse Ox O2 Delivery O2 Flow Rate FiO2 08/19/19 21:08 98.2 89 19 132/92 (105) 97 Room Air vitals normal Sp02 EP Interpretation: reviewed, normal General Appearance: alert/responsive, no apparent distress, non-toxic Head: normocephalic, atraumatic Eyes: PERRL, EOMI ENT: oropharynx normal Neck: supple/symm/no masses Respiratory: effort normal, no rhonchi, no wheezing Cardiovascular: no murmur, gallop, rub Gastrointestinal: non-tender, no mass, non-distended, no rebound/guarding, normal bowel sounds Musculoskeletal: gait & station normal Neurologic: oriented x3, sensory intact, motor strength/tone normal Skin: no rash, normal palpation Medical Decision Making Diagnostic Impression: Primary Impression: Schizophrenia Qualified Codes: F20.3 - Undifferentiated schizophrenia Additional Impression: Methamphetamine abuse ER Course Patient presents with exacerbation with schizophrenia. He is otherwise stable. Dose of Zyprexa given here. He denies any suicidal thoughts homicidal thought. No criteria for 5150. This patient is a chronic risk of self injury due to poor impulse control, limited coping skills, and judgment intermittently impaired by intoxication. I believe that the available clinical evidence to suggest that these characteristics derived primarily from personality disorder and are likely very stable over time. Hospitalization would likely attenuate risk of self-harm only during halfway period, without lasting risk reduction. Serious self-harm , while possible, would likely be inadvertent, and because of impulsivity, and foreseeable. For these reasons, I do not believe hospitalization would provide meaningful reduction in risk of self-harm. Last Vital Signs Date Time Temp Pulse Resp B/P (MAP) Pulse Ox O2 Delivery O2 Flow Rate FiO2 08/19/19 21:59 98.2 89 19 132/92 97 Room Air Status: improved Disposition: HOME, SELF-CARE Condition: Stable Scripts Quetiapine Fumarate* (SEROQUEL*) 200 Mg Tablet 200 MG ORAL TWICE A DAY, #60 TAB Prov: Bryan Merchant MD 08/19/19 Aripiprazole* (ABILIFY*) 10 Mg Tablet 10 MG ORAL DAILY, #30 TAB Prov: Bryan Merchant MD 08/19/19 Patient Instructions: Self-Destructive Behavior Additional Instructions: Follow-up with your mental health doctor within a week. Return if symptoms worsen. Stop using drugs. Bryan Merchant MD Aug 19, 2019 22:30
[2019-08-19 23:00] VITALS: BP 133/92
[2019-08-19] MEDS ORDERED: SEROQUEL200 MG ORAL (23:00)
[2019-08-19] MEDS ORDERED: ABILIFY10 MG ORAL (23:00)
--- NOTE | 2019-08-19 23:19 | NUR ---
ED Nurse Note: PATIENT RESTING COMFORTABLY IN BED WITH NAD. AO4. VSS. PROVIDED NOURISHMENT AND URINAL.
[2019-08-20 01:00] VITALS: BP 122/87
--- NOTE | 2019-08-20 01:48 | NUR ---
ED Nurse Note: patient sleeping in bed with no acute distress. respirations even and unlabored
[2019-08-20 03:00] VITALS: BP 123/89
--- NOTE | 2019-08-20 03:00 | NUR ---
ED Nurse Note: patient sleeping in bed with no acute distress. respirations even and unlabored
--- NOTE | 2019-08-20 04:30 | History and Physical Report ---
DATE OF ADMISSION: 08/19/2019 HISTORY OF PRESENT ILLNESS: This is a 44-year-old male with a history of substance abuse and methamphetamine use, who came to the hospital with weakness. The patient reports that he has been suicidal in the past, but currently is not suicidal. hypertensive and given medications including labetalol with improvement in symptoms. PAST MEDICAL HISTORY: Hypertension, asthma, diabetes mellitus, seizure disorder, substance abuse. ALLERGIES: None reported. HOME MEDICATIONS: The patient is unable to recall. REVIEW OF SYSTEMS: Denies any headaches, hematemesis, melena, hematochezia, night sweats, or weight loss. PHYSICAL EXAMINATION: GENERAL: Reveals a 44-year-old male. VITAL SIGNS: Blood pressure is 180/110, heart rate , respirations 18, and he is afebrile. HEENT: Unremarkable. LUNGS: Clear breath sounds. ABDOMEN: Soft. NEUROLOGIC: Nonfocal. LABORATORY AND DIAGNOSTIC DATA: Lab testing shows normal CBC except hemoglobin 13.8, creatinine is 0.9, potassium 3.4. Urinalysis shows 1+ glucose and 4+ urobilinogen. X-ray chest obtained today shows clear lung marshall bilaterally. There is evidence of prior lumbar spine surgery. IMPRESSION: 1. Hypertensive urgency. 2. Seizure disorder. 3. Diabetes mellitus. 4. Asthma. 5. Hypertension. DISCUSSION: Admit to the hospital. The patient is unclear about his home medications. I have requested him to try to obtain his list if he can. In the interim, I will start him on IV antihypertensives. SCDs, IV fluids, Haldol has been given. Normodyne/labetalol has been ordered. We will also order Ativan. Discussed with bedside nursing. We will consult Psychiatry. We will follow carefully. Mic Tovar M.D. DR: JULIETA JOB#: [id number] CC:
[2019-08-20 05:00] VITALS: BP 133/90
--- NOTE | 2019-08-20 05:00 | NUR ---
ED Nurse Note: PATIENT AWAKE ALERT AND ORIENT X4. PATIENT STATES SHE WANTS TO GO HOME NOW. DENIES BEING HOMELESS; ADDRESS ON FILE. AMBULATED TO BATHROOM WITH STEADY GAIT.
[2019-08-20 05:15] VITALS: BP 133/90
--- NOTE | 2019-08-20 05:15 | NUR ---
ER DISCHARGE NOTE: Patient is cleared to be discharged per ERMD, pt is aox4, on room air, with stable vital signs. pt was given dc and prescription instructions, pt was able to verbalize understanding, pt id band removed. pt is able to ambulate with steady gait. pt took all belongings.
== END 2019-08-20 05:15 | disposition home or self-care (01) ==
LOC: EDBD 21:15 → EMR 21:25
DX: F20.3 Undifferentiated schizophrenia (principal); F15.10 Other stimulant abuse, uncomplicated; I10 Essential (primary) hypertension; J45.909 Unspecified asthma, uncomplicated; E11.9 Type 2 diabetes mellitus without complications; F31.9 Bipolar disorder, unspecified; G40.909 Epilepsy, unspecified, not intractable, without status epilepticus
CPT/HCPCS: 99282

== ENCOUNTER 2020-01-16 22:16 | Emergency (ER) | payer MEDICARE, MEDICAID ==
[~2020-01-16] VITALS: Ht 177.8 cm; Wt 136.1 kg
[~2020-01-16 22:16] MED LIST changes: +ABILIFY10 MG ORAL
[2020-01-16 22:21] VITALS: BP 123/78
--- NOTE | 2020-01-16 22:38 | NUR ---
ED Nurse Note: WAlk-in patient with complaints of back pain and dizziness, patient is from the street and reports 10/10 pain, appears calm and relaxed upon arrival. will continue to monitor for order.
--- NOTE | 2020-01-16 22:43 | NUR ---
ED Nurse Note:] ERMD at bedside.
[2020-01-16] MEDS ORDERED: IBUPROFEN600 MG ORAL (22:47)
[2020-01-16] MEDS ORDERED: RISPERDAL2 MG ORAL (22:47)
--- NOTE | 2020-01-16 22:48 | Emergency Room Report ---
History of Present Illness General Chief Complaint: Back Pain-No Injury Source: Patient, Medical Record Present Illness HPI This a 44-year-old male with a history of schizophrenia. He also has history of chronic back pain. He presents with chief complaint of lower back pain. This is a chronic problem. No trauma. Pain is to the lower back. 8 out of 10. No fever chills sweats no incontinence of bowel or urine. No radiation of the pain. He also said he lost his Risperdal. He was just discharged from [facility] yesterday. He denies any suicidal thoughts or homicidal thought. He said he does hear voices but that is unchanged from before. Denies any recent methamphetamine use. Allergies: Coded Allergies: NO KNOWN ALLERGIES (Unverified Allergy, Unknown, 11/26/15) Patient History Past Medical History: see triage record, old chart reviewed Past Surgical History: other Pertinent Family History: none Social History: Reports: smoking, drug use Immunizations: other Reviewed Nursing Documentation: PMH: Agreed; PSxH: Agreed Nursing Documentation-PMH Hx Cardiac Problems: Yes Hx Hypertension: Yes Hx Asthma: Yes Hx Diabetes: Yes Hx Cancer: No Hx Gastrointestinal Problems: No Hx Neurological Problems: Yes Hx Seizures: Yes Hx Epilepsy: Yes Review of Systems Eye: Denies: eye pain, blurred vision ENT: Denies: ear pain, nose congestion, throat swelling Respiratory: Denies: cough, shortness of breath Cardiovascular: Denies: chest pain, palpitations Gastrointestinal: Denies: abdominal pain, diarrhea, nausea, vomiting Musculoskeletal: Reports: back pain; Denies: joint pain Skin: Denies: rash Neurological: Denies: headache, numbness Endocrine: Denies: increased thirst, increased urine Hematologic/Lymphatic: Denies: easy bruising All Other Systems: negative except mentioned in HPI Physical Exam Vital Signs Date Time Temp Pulse Resp B/P (MAP) Pulse Ox O2 Delivery O2 Flow Rate FiO2 01/16/20 22:21 99.0 117 20 123/78 (93) 96 Room Air Vitals unremarkable Sp02 EP Interpretation: reviewed, normal General Appearance: well appearing, no apparent distress, alert, obese Head: normocephalic, atraumatic Eyes: bilateral eye PERRL, bilateral eye EOMI ENT: hearing grossly normal, normal pharynx Neck: full range of motion, supple, no meningismus Respiratory: chest non-tender, lungs clear, normal breath sounds Cardiovascular #1: regular rate, rhythm, no murmur Gastrointestinal: normal bowel sounds, non tender, no mass, no organomegaly, no bruit, non-distended Musculoskeletal: back normal - No tenderness with palpation, normal range of motion, other - Patient has his own wheelchair Psychiatric: mood/affect normal Medical Decision Making Diagnostic Impression: Primary Impression: Chronic back pain Qualified Codes: M54.5 - Low back pain; G89.29 - Other chronic pain Additional Impressions: Schizophrenia Qualified Codes: F20.9 - Schizophrenia, unspecified Methamphetamine abuse Morbid obesity with BMI of 40.0-44.9, adult ER Course Patient presents with lower back pain. This is a chronic problem. No evidence of cauda equina syndrome, spinal epidural abscess or neoplastic process. He also has chronic schizophrenia. I gave him a dose of his Risperdal here. Will discharge home with Risperdal prescription. No criteria for 5150. This patient is a chronic risk of self injury due to poor impulse control, limited coping skills, and judgment intermittently impaired by intoxication. I believe that the available clinical evidence to suggest that these characteristics derived primarily from personality disorder and are likely very stable over time. Hospitalization would likely attenuate risk of self-harm only during shelter period, without lasting risk reduction. Serious self-harm , while possible, would likely be inadvertent, and because of impulsivity, and foreseeable. For these reasons, I do not believe hospitalization would provide meaningful reduction in risk of self-harm. Last Vital Signs Date Time Temp Pulse Resp B/P (MAP) Pulse Ox O2 Delivery O2 Flow Rate FiO2 01/16/20 22:21 99.0 117 20 123/78 (93) 96 Room Air Status: improved Disposition: HOME, SELF-CARE Condition: Stable Scripts Risperidone* (RISPERDAL*) 2 Mg Tablet 2 MG ORAL DAILY, #30 TAB 0 Refills Prov: Bryan Merchant MD 01/16/20 Ibuprofen* (MOTRIN*) 600 Mg Tablet 600 MG ORAL THREE TIMES A DAY, #30 TAB 0 Refills Prov: Bryan Merchant MD 01/16/20 Patient Instructions: Back Pain, Adult Additional Instructions: Follow-up with your doctor in 7 days. Stop using drugs. Follow-up with your mental health as scheduled. Return if worse. Bryan Merchant MD Jan 16, 2020 22:48
[2020-01-16 22:57] VITALS: BP 123/78
--- NOTE | 2020-01-16 22:57 | NUR ---
ER DISCHARGE NOTE: Patient is cleared to be discharged per ERMD, pt is aox4, on room air, with stable vital signs. pt was given dc and prescription instructions, pt was able to verbalize understanding, pt id band removed without complications. pt is able to ambulate with steady gait. pt took all belongings.
== END 2020-01-16 22:57 | disposition home or self-care (01) ==
LOC: EMR 22:48
DX: M54.5 Low back pain (principal); G89.29 Other chronic pain; F20.9 Schizophrenia, unspecified; F15.10 Other stimulant abuse, uncomplicated; E66.01 Morbid (severe) obesity due to excess calories; Z68.41 Body mass index [BMI] 40.0-44.9, adult; I10 Essential (primary) hypertension; J45.909 Unspecified asthma, uncomplicated; E11.9 Type 2 diabetes mellitus without complications; Z86.69 Personal history of other diseases of the nervous system and sense organs; F17.200 Nicotine dependence, unspecified, uncomplicated
CPT/HCPCS: 99282

== ENCOUNTER 2020-01-21 17:46 | Emergency (ER) | payer MEDICARE, MEDICAID ==
[~2020-01-21] VITALS: Ht 175.3 cm; Wt 136.1 kg
[~2020-01-21 17:46] MED LIST changes: +RISPERDAL2 MG ORAL
--- NOTE | 2020-01-21 18:08 | NUR ---
ED Nurse Note: Pt brought into ED by ambulance for ambdominal pain 05/22. He denies nausea/vomiting. Pt is wheelchair bound. Pt is alert and orientedx3 and has been seen by MD. Pt is wiping poop on bed and clothes he came in are covered in excrement. Pt set up to monitor.
[2020-01-21 18:12] VITALS: BP 186/90
[2020-01-21] MEDS ORDERED: Haloperidol 5mg/ml Inj IM ONE (18:15)
[2020-01-21] MEDS ORDERED: Mylanta II UD 30ml ORAL ONE (18:15)
[2020-01-21] MEDS ORDERED: Dicyclomine HCl 10mg/5ml oral soln ORAL ONE (18:15)
[2020-01-21] MEDS ORDERED: Lidocaine 2% Visc 15ml soln ORAL ONE (18:15)
--- NOTE | 2020-01-21 18:20 | NUR ---
ED Nurse Note: MD aware BP 193/94. MD also aware pt states he's hearing voices.
--- NOTE | 2020-01-21 18:41 | Emergency Room Report ---
History of Present Illness General Chief Complaint: Abdominal Pain Source: Patient Present Illness HPI 44-year-old male presents ED for evaluation. Brought in by EMS from home. States he is having abdominal pain. Patient has schizophrenia and is a poor historian. Points to his abdomen. Unable to characterize the pain. No nausea or vomiting. No fevers or chills. States he is hearing voices. Denies alcohol or drug use. No other aggravating relieving factors. Denies any associated symptoms Allergies: Coded Allergies: NO KNOWN ALLERGIES (Unverified Allergy, Unknown, 11/26/15) Patient History Past Medical History: DM, HTN, asthma, psych hx Past Surgical History: none Pertinent Family History: none Social History: Denies: smoking, alcohol use, drug use Immunizations: UTD Reviewed Nursing Documentation: PMH: Agreed; PSxH: Agreed Nursing Documentation-PMH Past Medical History: No History, Except For Hx Cardiac Problems: Yes Hx Hypertension: Yes Hx Asthma: Yes Hx Diabetes: Yes Hx Cancer: No Hx Gastrointestinal Problems: No Hx Neurological Problems: Yes Hx Seizures: Yes Hx Epilepsy: Yes Review of Systems All Other Systems: negative except mentioned in HPI Physical Exam Vital Signs Date Time Temp Pulse Resp B/P (MAP) Pulse Ox O2 Delivery O2 Flow Rate FiO2 01/21/20 17:41 98.2 92 18 193/94 (127) 100 Room Air 01/21/20 18:12 99 Sp02 EP Interpretation: reviewed, normal General Appearance: no apparent distress, alert, GCS 15, non-toxic, obese Head: normocephalic, atraumatic Eyes: bilateral eye normal inspection, bilateral eye PERRL ENT: hearing grossly normal, normal pharynx, no angioedema, normal voice Neck: full range of motion, supple/symm/no masses Respiratory: chest non-tender, lungs clear, normal breath sounds, speaking full sentences Cardiovascular #1: regular rate, rhythm, no edema Cardiovascular #2: 2+ carotid (R), 2+ carotid (L), 2+ radial (R), 2+ radial (L) , 2+ dorsalis pedis (R), 2+ dorsalis pedis (L) Gastrointestinal: normal bowel sounds, non tender, soft, non-distended, no guarding, no rebound Rectal: deferred Genitourinary: normal inspection, no CVA tenderness Musculoskeletal: back normal, normal range of motion, gait/station normal, non- tender Neurologic: alert, motor strength/tone normal, oriented x3, sensory intact, responsive, speech normal Psychiatric: memory normal, no suicidal/homicidal ideation, anxious Reflexes: 3+ bicep (R), 3+ bicep (L), 3+ tricep (R), 3+ tricep (L), 3+ knee (R) , 3+ knee (L) Skin: no rash Lymphatic: no adenopathy Medical Decision Making Homeless Attestation I, The treating physician Dr. Tang, have assessed and agrees that patient is medically stable for discharge to an outpatient disposition. Diagnostic Impression: Primary Impression: Schizophrenia Qualified Codes: F20.9 - Schizophrenia, unspecified ER Course Hospital Course 44 yo M presents hearing voices. h/o schizophrenia Clinical course Patient placed on stretcher. After initial history exam reveals obese male in no acute distress. Maintaining good eye contact. Answering questions appropriately. Patient requesting food. I ordered Haldol and GI cocktail. Patient allowed to sleep. I reviewed EMR. Patient has multiple visits to ED for similar presentation. On reassessment patient feels better. Not danger to self or others. Can be discharged. Homeless checklist completed. I will provide referrals. Diagnosis - schizophrenia stable and discharged to home with Rx Risperdol. Followup with PMD/psych. Return to ED if symptoms recur or worsen Last Vital Signs Date Time Temp Pulse Resp B/P (MAP) Pulse Ox O2 Delivery O2 Flow Rate FiO2 01/21/20 18:12 98.2 71 20 186/90 98 Room Air 01/21/20 18:12 99 Status: improved Disposition: HOME, SELF-CARE Condition: Stable Scripts Risperidone* (RISPERDAL*) 2 Mg Tablet 2 MG ORAL DAILY, #30 TAB 0 Refills Prov: Fer Tang MD 01/21/20 Fer Tang MD Jan 21, 2020 18:41
--- NOTE | 2020-01-21 19:03 | NUR ---
ED Nurse Note: Report recieved from DONNELL Snowden. Pt VSS, resting in bed, no s/s of distress noted.
--- NOTE | 2020-01-21 19:06 | NUR ---
HAND-OFF: Report given to DONNELL Lazcano. Pt in stable condition; plan of care endorsed.
--- NOTE | 2020-01-21 20:38 | NUR ---
ED Nurse Note: Pt sleeping in bed, no s/s of distress noted. VSS.
--- NOTE | 2020-01-21 21:30 | NUR ---
ED Nurse Note: Pt sleeping in room, vss no s/s of distress noted.
[2020-01-21] MEDS ORDERED: RISPERDAL2 MG ORAL (22:29)
[2020-01-21 22:40] VITALS: BP 152/83
--- NOTE | 2020-01-21 22:40 | NUR ---
ER DISCHARGE NOTE: Patient is cleared to be discharged home per ERMD, pt is aox4, on room air, with stable vital signs. pt was given dc and prescription instructions, pt was able to verbalize understanding, pt id band and iv site removed without complications. pt left via wheelchair. pt took all belongings. Pt discharged by charge nurse.
== END 2020-01-21 22:40 | disposition home or self-care (01) ==
LOC: EDBD 17:46 → EMR 19:01
DX: R10.9 Unspecified abdominal pain (principal); I10 Essential (primary) hypertension; E11.9 Type 2 diabetes mellitus without complications; G40.909 Epilepsy, unspecified, not intractable, without status epilepticus
CPT/HCPCS: 96372; 99283; J1630

== ENCOUNTER 2020-07-28 01:31 | Emergency (ER) | payer MEDICARE, MEDICAID ==
[~2020-07-28] VITALS: Ht 172.7 cm; Wt 129.3 kg
[2020-07-28 01:35] VITALS: BP 132/88
--- NOTE | 2020-07-28 01:35 | NUR ---
ED Nurse Note: Patient brought into ED by BRAULIO GIL 826 for c/o lower back pain. Patient states he fell and hurt his back. No obvious signs of trauma or injury. Patient is aaox4, breathing is normal and unlabored. NAD noted.
--- NOTE | 2020-07-28 01:56 | Emergency Room Report ---
History of Present Illness General Chief Complaint: Lower Back Pain or Injury Source: Patient Present Illness HPI Is a 45-year-old morbidly obese male with a history of methamphetamine abuse and chronic back pain. He called 911 outside of convenience store with chief complaint of back pain. He said he is hurting all over. Pain is 9 out of 10. No trauma. Nothing made it better. Nothing made it worse. No incontinence of bowel or urine. No fever chills. No radiation of the pain. Pain is worse with movement. Better with rest. Also said that he is out of his schizophrenic medication. He said that he takes Seroquel and Risperdal. Denies suicidal thoughts or homicidal thought. Admits to hearing voices. This is unchanged from before. Allergies: Coded Allergies: NO KNOWN ALLERGIES (Unverified Allergy, Unknown, 11/26/15) COVID-19 Screening Contact w/high risk pt: No Experienced COVID-19 symptoms?: No COVID-19 Testing performed GEOLOGICAL ENGINEER: No Patient History Past Medical History: see triage record, old chart reviewed, psych hx Past Surgical History: other Pertinent Family History: none Social History: Reports: drug use; Denies: smoking Immunizations: other Reviewed Nursing Documentation: PMH: Agreed; PSxH: Agreed Nursing Documentation-PMH Hx Cardiac Problems: Yes Hx Hypertension: Yes Hx Asthma: Yes Hx Diabetes: Yes Hx Cancer: No Hx Gastrointestinal Problems: No History Of Psychiatric Problem: Yes Hx Neurological Problems: Yes Hx Seizures: Yes Hx Epilepsy: Yes Review of Systems Eye: Denies: eye pain, blurred vision ENT: Denies: ear pain, nose congestion, throat swelling Respiratory: Denies: cough, shortness of breath Cardiovascular: Denies: chest pain, palpitations Gastrointestinal: Denies: abdominal pain, diarrhea, nausea, vomiting Musculoskeletal: Reports: back pain; Denies: joint pain Skin: Denies: rash Neurological: Denies: headache, numbness Endocrine: Denies: increased thirst, increased urine Hematologic/Lymphatic: Denies: easy bruising All Other Systems: negative except mentioned in HPI Physical Exam Vital Signs Date Time Temp Pulse Resp B/P (MAP) Pulse Ox O2 Delivery O2 Flow Rate FiO2 07/28/20 01:34 99.0 90 18 132/88 (103) 99 Room Air Vitals normal Sp02 EP Interpretation: reviewed, normal General Appearance: well appearing, no apparent distress, alert, obese Head: normocephalic, atraumatic Eyes: bilateral eye PERRL, bilateral eye EOMI ENT: hearing grossly normal, normal pharynx Neck: full range of motion, supple, no meningismus Respiratory: chest non-tender, lungs clear, normal breath sounds Cardiovascular #1: regular rate, rhythm, no murmur Gastrointestinal: normal bowel sounds, non tender, no mass, no organomegaly, no bruit, non-distended Musculoskeletal: back normal, normal range of motion, gait/station normal Psychiatric: mood/affect normal Medical Decision Making Homeless Attestation I, The treating physician, Dr Bryan Merchant, has assessed and agrees that patient is medically stable for discharge to an outpatient disposition. Diagnostic Impression: Primary Impression: Low back pain Qualified Codes: M54.5 - Low back pain Additional Impressions: Schizophrenia Qualified Codes: F20.9 - Schizophrenia, unspecified Methamphetamine abuse Morbid obesity ER Course Patient presents with exacerbation of chronic back pain. No red flag to cauda equina syndrome, spinal epidural abscess or neoplastic process. No evidence of trauma. Will discharge home. This patient is a chronic risk of self injury due to poor impulse control, limited coping skills, and judgment intermittently impaired by intoxication. I believe that the available clinical evidence to suggest that these characteristics derived primarily from personality disorder and are likely very stable over time. Hospitalization would likely attenuate risk of self-harm only during skilled nursing period, without lasting risk reduction. Serious self-harm , while possible, would likely be inadvertent, and because of impulsivity, and foreseeable. For these reasons, I do not believe hospitalization would provide meaningful reduction in risk of self-harm. Last Vital Signs Date Time Temp Pulse Resp B/P (MAP) Pulse Ox O2 Delivery O2 Flow Rate FiO2 07/28/20 01:35 99.0 90 18 132/88 99 Room Air Status: improved Disposition: HOME, SELF-CARE Scripts Ibuprofen* (MOTRIN*) 600 Mg Tablet 600 MG ORAL Q6H PRN for For Pain, #30 TAB 0 Refills Prov: Bryan Merchant MD 07/28/20 Risperidone* (RISPERDAL*) 2 Mg Tablet 2 MG ORAL DAILY, #30 TAB 0 Refills Prov: Bryan Merchant MD 07/28/20 Patient Instructions: Back Pain, Adult Additional Instructions: Stop using drugs. Follow-up with mental health in 7 days. Follow-up with your doctor in 7 days. Return if worse. Bryan Merchant MD Jul 28, 2020 01:56
[2020-07-28] MEDS ORDERED: IBUPROFEN600 M1 ORAL (02:00)
[2020-07-28] MEDS ORDERED: RISPERDAL2 MG ORAL (02:00)
[2020-07-28 02:25] VITALS: BP 129/78
== END 2020-07-28 02:25 | disposition home or self-care (01) ==
LOC: EDUNIT# 01:31 → EDBD 01:31 → EMR 01:55
DX: M54.5 Low back pain (principal); G89.29 Other chronic pain; F20.9 Schizophrenia, unspecified; F15.10 Other stimulant abuse, uncomplicated; E66.01 Morbid (severe) obesity due to excess calories; Z68.41 Body mass index [BMI] 40.0-44.9, adult; G40.909 Epilepsy, unspecified, not intractable, without status epilepticus; E11.9 Type 2 diabetes mellitus without complications
CPT/HCPCS: 99282